=== PATIENT | male | born 1950 | race Two or more races ===

== ENCOUNTER 2025-01-02 11:15 | Emergency (ER) | payer OTHER ==
[~2025-01-02] VITALS: Ht 172.7 cm; Wt 78.3 kg
[2025-01-02 11:16] VITALS: BP 128/72; PULSE 68; RESP 16; TEMP 98; O2SAT 96
--- NOTE | 2025-01-02 11:43 | ED.PDOC ---
General HPI Comments HPI: 74 y/o M, presents to the ED for CC of Joy catheter removal. Patient reports he was DC from [facility] x2days ago, and was instructed to follow up with the ED if unable to follow up with Urology for Joy Catheter removal. At this time Joy Catheter is draining clear yellow urine and no blood is visible. Patient c/o current 5/10 pain to his penile area. Patient denies dysuria, frequency, urgency, fever, or penile discharge. No other symptoms or modifying factors are present at this time. Patient states he is unable to see his PCP for another two months and he tried calling them multiple times. Patient is extremely poor historian Initial Vitals BP:128/72 HR:68 RR:16 O2 Sat:96% Temp:98.0 Past Medical history: BPH, hyperlipidemia, hypertension, diabetes Past Surgical history: Denies any Medications: Social History: Denies smoking, ETOH, and drug use. Allergies: NKDA HPI: Poor Historian. REVIEW OF SYSTEMS: CONSTITUTIONAL: Denies acute: fever, diaphoresis, chills, generalized weakness. HEAD: Denies acute: headache, photophobia Eyes: Denies acute: Double vision, vision loss, eye pain, eye discharge. EARS: Denies acute: tinnitus, hearing loss, ear discharge, ear pain, THROAT: Denies acute: sore throat, swelling, difficulty swallowing , pain with swallowing, change in voice. NECK: Denies acute: neck pain, neck swelling, stiff neck. HEART: Denies acute : chest pain, palpitations, LUNGS: Denies acute: SOB, wheezing, cough, hemoptysis ABDOMEN: Denies acute: abdominal pain, Nausea, Vomiting, diarrhea, melena , hematemesis, hematochezia SKIN: Denies acute: rash, redness, lesions, itchiness. EXTREMITIES: Denies acute: calf pain, numbness, tingling, weakness, denies pain in extremity. Denies acute: Low back pain. Neuro: Denies acute: focal neurological deficit, motor or sensory focal neurological d eficit, tremors, seizure like activity, confusion, dizziness, change in mental status, loss of bowel or bladder function, cauda equina like symptoms. : Denies acute: dysuria, hematuria, flank pain, increase in urinary frequency. PSYCH: Denies acute: hallucination, suicidal ideation, homicidal ideation. PHYSICAL EXAM: General: ----NO----acute distress, awake and alert. Head: normocephalic, atraumatic. No raccoon's eyes, no mccrary sign. Neck: supple, trachea is midline, no swelling. Throat: Normal phonation. Eyes:, no erythema, no purulent discharge, no proptosis, no icterus. Heart: regular rate, regular rhythm, no significant murmur appreciated. Lungs: no apparent respiratory distress, Able to speak in full sentences. No wheezing, no rhonchi, no crackles. No stridors Clear to auscultation bilaterally. Abdomen: non tender to palpation, non distended, soft, no guarding, no rebound, + bowel sounds. Neuro: Awake, Alert, oriented to name, self, situation, follows commands GCS=15. Speech is normal. Skin: no petechia, no purpura, no cyanosis, non-pale, not jaundice. Lower extremities: --no - Pitting edema no deformity, no focal swelling, no calf TTP. Makes eye contact. moves all four extremities. Face: no apparent facial droop. Ambulating in the ED independently. ED COURSE: DISCLAIMER: This medical document was created using an electronic medical record system with voice recognition software and computerized dictation system. Although this document has been carefully reviewed, there might still be some phonetic and typographical errors. Occasional wrong-word or "sound-alike" substitutions may have occurred due to the inherent limitations of voice recognition software. These areas are purely typographical due to imperfections of the software programs and do not reflect any compromise in the patient's medical care. Please read the chart carefully and recognize, using context, where these substitutions have occurred. Chief Complaint: Urinary Time Seen by MD: 11:30 Reviewed notes: Nurses Notes, Medications, Allergies Allergies: Coded Allergies: NO KNOWN ALLERGIES (Unverified , 01/02/25) Information Source: Patient Mode of Arrival: Ambulatory Prehospital treatment: None Onset: Other (following catheter insertion) Symptoms: Other (penile pain) Penile discharge: None Modifying factors: None associated signs and symptoms: None Was a procedure done? Was a procedure done?: No Differential Diagnosis Kidney stone (Female): N/A Penile/Scrotal: UTI, Urolithiasis X-Ray, Labs, Meds, VS Vital Signs Date Time Temp Pulse Resp B/P (MAP) Pulse Ox O2 Delivery O2 Flow Rate FiO2 01/02/25 11:16 98.0 68 16 128/72 96 98.0 Time of 1ST Reevaluation: 12:00 Reevaluation 1ST: Unchanged Patient Education/Counseling: Diagnosis, Treatment Family Education/Counseling: No Family Present Comments MDM: patient presented with the above HPI.---indwelling Joy catheter---complaint evaluation was initiated. patient was found with the above mentioned diagnosis. the following medications were ordered: please refer to order lists of meds and tests obtained by myself Dr. Banks. Patient ED course and VS have been stabilized. Patient has been reassessed in the ED and remained in a stable condition. Pertinent incidental findings were discussed with the patient and/or family. Patient/family voices understanding and is agreeable with plan. Patient has been observed in the ED adequate length of time to insure improvement/stability. Escalation of care considered: Consideration of escalation to observation or admission I spoke with the Urology Clinic in our facility and they said to send the patient directly to their office and they will take over from there. Patient was DISCHARGED home in a stable condition. We took the patient directly from the ER and walked him into the urology clinic. All the reports of any imaging studies that were ordered by myself were reviewed by myself. SEPSIS Sepsis Screen Date sepsis recognized/suspect: Jan 02, 2025 Time Sepsis recognized/suspect: 1121 Recent Procedure: No On Antibiotic Therapy: No Respiratory Rate >20: No Heart Rate >90: No Temp<36 C (96.8 F) or >38.3 C: No SBP <90 or MAP <65 mmHG: No New Acute Mental Status Change: No Is the patient on CPAP, BIPAP,: No Vital Signs Date Time Temp Pulse Resp B/P (MAP) Pulse Ox O2 Delivery O2 Flow Rate FiO2 01/02/25 11:16 98.0 68 16 128/72 96 98.0 Departure 1 Departure Time of Disposition: 11:50 Impression: Primary Impression: Indwelling Joy catheter present Disposition: HOME / SELF CARE / HOMELESS Condition: Stable Additional Instructions: Urology clinic: [phone] [address] directly to [id number] In this facility to establish an appointment with the urology clinic. I already called them for you. Additional instructions: Please read all instructions provided in this packet carefully. You MUST follow-up with your primary care/family doctor in 1 to 2 days. If you are unable to see your primary care/family doctor, please return to our emergency room for re-assessment and re-evaluation in 1 to 2 days. Return to the emergency room here in our facility or to the nearest ER [facility] if your symptoms change or worsen. CONSULTATIONS: you MUST Follow-up for consultation as soon as possible with: -urology in 1-2 days. Please call for appointment. You MUST call the consultants office yourself to make an appointment. You may need to arrange that through your insurance and/or your primary/family doctor. If you are unable to see the customer sales consultant in 1 to 2 days, you must return to our emergency room (or any other ER of your choice) for re-assessment and re- evaluation. Adequate fluid hydration. Although you have been discharged from the Emergency Department, this does not mean that you have a "clean bill of health". No definitive diagnosis for your symptoms has been made today. It is possible that you are in the process of developing a serious illness. This is why you must return to the ED without fail if any new or worsening symptoms develop. Discharged With: Self Critical Care Note Critical Care Time?: No I personally scribed for SNEHAL BANKS DO ([email or web address]) on 01/02/25 at 11:43. Electronically submitted by Gloria Esteban ([email or web address]). SNEHAL BANKS DO Jan 02, 2025 11:43
== END 2025-01-02 12:00 | disposition home or self-care (01) ==
LOC: ER 11:15
DX: Z46.82 Encounter for fitting and adjustment of non-vascular catheter (principal); E78.5 Hyperlipidemia, unspecified; E11.9 Type 2 diabetes mellitus without complications; I10 Essential (primary) hypertension; N40.0 Benign prostatic hyperplasia without lower urinary tract symptoms

== ENCOUNTER 2025-01-09 11:26 | Inpatient (IN) | payer OTHER ==
[~2025-01-09] VITALS: Ht 203.2 cm; Wt 83.6 kg
--- NOTE | 2025-01-09 12:05 | ED.PDOC ---
General HPI Comments 74 year old male with PMHx BPH, hyperlipidemia, hypertension, diabetes presents to the ED with a chief complaint of penile pain onset 4 days. Patient states he began experiencing penile pain 4 days ago, noticed bleeding around the catheter, about 2 days ago noticed blood draining into catheter. Currently rates penile pain 10/08. He was seen in this ED on 01/02/25, catheter was not removed, was not experiencing bleeding at the time. Catheter was placed on 12/15/24 due to urinary blockage. Denies fever, chills, nausea, vomiting, diarrhea, headache, dizziness. No other symptoms or modifying factors present at this time. Chief Complaint: Urinary Time Seen by MD: 12:00 Reviewed notes: Medications, Allergies Allergies: Coded Allergies: NO KNOWN ALLERGIES (Unverified , 01/02/25) Information Source: Patient Mode of Arrival: Ambulatory Severity: Moderate Past Medical History PAST MEDICAL HISTORY: DM, High Lipids, HTN Surgical History: Denies all surgeries Family History Family History: Reviewed,noncontributory to illness, No family hx of Cancer, No family hx of DM, No family hx of Heart sirisha, No family hx of HTN, No family hx ofKidney sirisha, No family hx of Liver sirisha, No family hx of Lung sirisha, No family hx of Stroke Social History Smoker: Non-Smoker Alcohol: Denies ETOH Use Drugs: Denies Drug Use Lives In: Home Constitutional: denies: chills, diaphoresis, fatigue, fever, malaise, sweats, weakness, others EENTM: denies: blurred vision, double vision, ear bleeding, ear discharge, ear drainage, ear pain, ear ringing, eye pain, eye redness, hearing loss, mouth pain, mouth swelling, nasal discharge, nose bleeding, nose congestion, nose pain, photophobia, tearing, throat pain, throat swelling, voice changes, others Respiratory: denies: cough, hemoptysis, orthopnea, SOB at rest, shortness of breath, SOB with excertion, stridor, wheezing, others Cardiovascular: denies: chest pain, dizzy spells, diaphoresis, Dyspnea on e xertion, edema, irregular heart beat, left arm pain, lightheadedness, palpitations, PND, syncope, others Gastrointestinal: denies: abdomen distended, abdominal pain, blood streaked bowels, constipated, diarrhea, dysphagia, difficulty swallowing, hematemesis, melena, nausea, poor appetite, poor fluid intake, rectal bleeding, rectal pain, vomiting, others Genitourinary: reports: hematuria, testicle pain; denies: burning, dysuria, flank pain, frequency, incontinence, penile discharge, penile sore, pain, testicle swelling, urgency, others Neurological: denies: dizziness, fainting, headache, left sided numbness, left sided weakness, numbness, paresthesia, pre-existing deficit, right sided numbness, right sided weakness, seizure, speech problems, tingling, tremors, weakness, others Musculoskeletal: denies: back pain, gout, joint pain, joint swelling, muscle pain, muscle stiffness, neck pain, others Integumetry: denies: bruises, change in color, change in hair/nails, dryness, laceration, lesions, lumps, rash, wounds, others Allergic/Immunocompromised: denies: Difficulty Healing, Frequent Infections, Hives, Itching, others Hematologic/Lymphatic: denies: anemia, blood clots, easy bleeding, easy bruisin g, swollen glands, others Endocrine: denies: excessive hunger, excessive sweating, excessive thirst, excessive urination, flushing, intolerance to cold, intolerance to heat, unexplained weight gain, unexplained weight loss, others Psychiatric: denies: anxiety, bipolar disorder, depression, hopeless, panic disorder, schizophrenia, sleepless, suicidal, others All Other Systems: Reviewed and Negative Physical Exam General Appearance: Normal HEENT: Normal ENT Inspection, Pharynx Normal, TMs Normal Neck: Full Range of Motion, Non-Tender, Normal, Normal Inspection Respiratory: Chest Non-Tender, Lungs Clear, No Accessory Muscle Use, No Respiratory Distress, Normal Breath Sounds Cardiovascular: No Edema, No JVD, No Murmur, No Gallop, Normal Peripheral Pulses, Regular Rate/Rhythm Breast Exam: Deferred Gastrointestinal: No Organomegaly, Non Tender, No Pulsatile Mass, Normal Bowel Sounds, Soft Genitalia: Deferred Pelvic: Deferred Rectal: Deferred Extremities: No calf tenderness, Normal capillary refill, Normal inspection, Normal range of motion, Non-tender, No pedal edema Musculoskeletal : Apperance: Normal Neurologic: Alert, ski instructor II-XII nml as Tested, No Motor Deficits, Normal Affect, Normal Mood, No Sensory Deficits Cerebellar Function: Normal Reflexes: Normal Skin: Dry, Normal Color, Warm Lymphatic: No Adenopathy Was a procedure done? Was a procedure done?: No Differential Diagnosis Kidney stone (Female): N/A Kidney stone (Male): N/A Penile/Scrotal: N/A Urinary Problem (Male): Bladder Outlet, Bladder Obstruction, Urethritis, Urinary Retention Urinary Problem (Female): N/A X-Ray, Labs, Meds, VS Vital Signs Date Time Temp Pulse Resp B/P (MAP) Pulse Ox O2 Delivery O2 Flow Rate FiO2 01/09/25 11:34 98.9 69 16 124/63 95 98.9 Lab Test 01/09/25 13:58 01/09/25 12:38 01/09/25 12:15 Range/Units Lactic Acid Level 1.3 0.4-2.0 mmol/L White Blood Count 5.7 4.4-10.8 10^3/uL Red Blood Count 4.35 L 4.5-5.90 10^6/uL Hemoglobin 13.4 L 13.5-17.5 g/dL Hematocrit 40.2 L 41.0-53.0 % Mean Corpuscular Volume 92.5 80.0-100.0 fL Mean Corpuscular Hemoglobin 30.8 28.0-32.0 pg Mean Corpuscular Hemoglobin Concent 33.3 32.0-36.0 g/dL Red Cell Distribution Width 12.9 11.8-14.3 % Platelet Count 212 140-450 10^3/uL Mean Platelet Volume 7.9 6.9-10.8 fL Neutrophils (%) (Auto) 59.9 37.0-80.0 % Lymphocytes (%) (Auto) 30.2 10.0-50.0 % Monocytes (%) (Auto) 6.1 0.0-12.0 % Eosinophils (%) (Auto) 3.0 0.0-7.0 % Basophils (%) (Auto) 0.8 0.0-2.0 % Neutrophils # (Auto) 3.4 1.6-8.6 10 ^3/uL Lymphocytes # (Auto) 1.7 0.4-5.4 10 ^3/uL Monocytes # (Auto) 0.3 0-1.3 10 ^3/uL Eosinophils # (Auto) 0.2 0-0.8 10 ^3/uL Basophils # (Auto) 0 0-0.2 10 ^3/uL Nucleated Red Blood Cells 0.1 % Sodium Level 145 136-145 mmol/L Potassium Level 4.1 3.5-5.1 mmol/L Chloride Level 106 98-107 mmol/L Carbon Dioxide Level 28 20-31 mmol/L Anion Gap 11 5-15 Blood Urea Nitrogen 10 9-23 mg/dL Creatinine 0.97 0.700-1.30 mg/dL Glomerular Filtration Rate Calc 82 >90 mL/min BUN/Creatinine Ratio 10.3 10.0-20.0 Serum Glucose 151 H 74-106 mg/dL Calcium Level 9.4 8.7-10.4 mg/dL Urine Color Dark-brown Yellow Urine Clarity Ex.turbid Clear Urine pH 5.5 5.0-9.0 Urine Specific [place] 1.027 1.001-1.035 Urine Protein 1+ H Negative Urine Ketones Negative Negative Urine Blood 3+ H Negative /uL Urine Nitrite Negative Negative Urine Bilirubin Negative Negative Urine Urobilinogen Normal Negative mg/dL Urine Leukocyte Esterase 1+ Negative /uL Urine RBC 2976 0 - 3 /hpf Urine Microscopic WBC 377 H 0-3 /HPF Urine Squamous Epithelial Cells None seen <5 /hpf Urine Bacteria None seen None Seen /hpf Urine Mucus Few None Seen Urine Yeast (Budding) Many None Seen /hpf Urine Glucose Normal Normal mg/dL Time of 1ST Reevaluation: 12:30 Reevaluation 1ST: Unchanged Patient Education/Counseling: Diagnosis, Treatment, Prognosis Family Education/Counseling: No Family Present SEPSIS Sepsis Screen Date sepsis recognized/suspect: Jan 09, 2025 Time Sepsis recognized/suspect: 1139 Recent Procedure: No On Antibiotic Therapy: No Respiratory Rate >20: No Heart Rate >90: No Temp<36 C (96.8 F) or >38.3 C: No SBP <90 or MAP <65 mmHG: No New Acute Mental Status Change: No Is the patient on CPAP, BIPAP,: No Physician Orders Blood Culture (01/09/25 13:30) Vital Signs Date Time Temp Pulse Resp B/P (MAP) Pulse Ox O2 Delivery O2 Flow Rate FiO2 01/09/25 11:34 98.9 69 16 124/63 95 98.9 Laboratory Tests Test 01/09/25 12:38 01/09/25 13:58 White Blood Count 5.7 10^3/uL (4.4-10.8) Lactic Acid Level 1.3 mmol/L (0.4-2.0) Departure 1 Departure Time of Disposition: 15:16 (Patient with a Joy catheter has been in for over a month. Patient with a worsening hematuria and concern for catheter associated urinary tract infection. We will admit patient for further workup and expert consultation) Impression: Primary Impression: Indwelling Joy catheter present Additional Impressions: Catheter-associated urinary tract infection Hematuria Penile pain Disposition: ADMITTED INPATIENT Admit to: Med Surg Condition: Serious Critical Care Note Critical Care Time?: No Stability Stability form required: No Heart Score Heart Score: Heart Score Response (Comments) Value History N/A 0 EKG N/A 0 Age N/A 0 Risk Factors N/A 0 Troponin N/A 0 Total 0 I personally scribed for BURAK BAZZI MD ([email or web address]) on 01/09/25 at 12:05. Electronically submitted by Ashley Vallejo ([email or web address]). BURAK BAZZI MD Jan 09, 2025 12:05
[2025-01-09 12:56] LABS: Hematocrit 40.2 % (41.0-53.0); Hemoglobin 13.4 g/dL (13.5-17.5); Mean Corpuscular Hemoglobin 30.8 pg (28.0-32.0); Mean Corpuscular Volume 92.5 fL (80.0-100.0); Nucleated Red Blood Cells % 0.1 %
[2025-01-09 13:01] LABS: Urine Budding Yeast MANY /hpf (None Seen); Urine Protein, UAD 1+ (Negative)
[2025-01-09 13:10] LABS: Chloride 106 mmol/L (98-107); Potassium 4.1 mmol/L (3.5-5.1); Sodium 145 mmol/L (136-145)
[2025-01-09 13:12] LABS: Anion Gap 11 (5-15); Calcium 9.4 mg/dL (8.7-10.4); Carbon Dioxide 28 mmol/L (20-31)
[2025-01-09 13:17] LABS: BUN/Creatinine Ratio 10.3 (10.0-20.0); Blood Urea Nitrogen 10 mg/dL (9-23); Glucose 151 mg/dL (74-106)
[2025-01-09] MEDS: SODIUM CHLORIDE 0.9% 1,000 ML IV ONE (14:33)
[2025-01-09] MEDS ORDERED: NITROGLYCERIN 0.4 MG SL TAB SL PRN (17:00)
[2025-01-09] MEDS: ACCU-CHEK COMFORT CURVE STRIP VI SCH (17:00)
[2025-01-09] MEDS ORDERED: ACETAMINOPHEN 325 MG TAB PO PRN (17:00)
[2025-01-09] MEDS ORDERED: ONDANSETRON HCL 4 MG/2 ML VIAL IV PRN (17:00)
[2025-01-09] MEDS ORDERED: DEXTROSE (50%) 50ML SYRG IV PRN (17:00)
[2025-01-09] MEDS ORDERED: TRIAMCINOLONE ACET 0.1% TOPICAL CREAM 15GM TOP PRN (17:00)
[2025-01-09] MEDS ORDERED: MORPHINE SULFATE INJ 2 MG/ml SYRG IV PRN ×2 (17:00)
[2025-01-09] MEDS ORDERED: DOCUSATE SOD 100 MG CAP PO PRN (17:00)
[2025-01-09] MEDS: InsuLIN REG 1unit/0.01ml Soln (100units/ml) SC SCH (17:00)
[2025-01-09] MEDS: SODIUM CHLORIDE 0.9% 1,000 ML IV SCH (17:00)
--- NOTE | 2025-01-09 17:11 | DVHHPRES ---
History of Present Illness Resident Creating Document: SHAMEKA STONE RESIDENT History of Present Illness Mr. Park, a 74-year-old male with a history of BPH, hemorrhoids, hyperlipidemia, hypertension, dyslipidemia, dementia, and type II diabetes presented to the ED for Emerson catheter removal after being discharged from [facility] two days ago with instructions to return if unable to follow up with urology. The catheter is draining clear yellow urine without blood. He reports 5/10 penile pain but denies dysuria, frequency, urgency, fever, or discharge additionally with hematuria and testicular pain. He is unable to see his PCP for two months despite multiple attempts to contact them and is noted to be a poor historian. On arrival, vitals were stable (BP 128/72, HR 68, RR 16, SpO? 96%, Temp 98.0). He denies smoking, alcohol, or drug use and has no surgical history or known drug allergies. Past Medical Hx: BPH, hemorrhoids, hyperlipidemia, hypertension, dyslipidemia, dementia, and type II diabetes. Surgical History: Denies all surgeries, on emerson's catheter, for urinary retention needs urology follow up. Family History: Reviewed, noncontributory to illness Social History: Denies smoking, ETOH, and drug use. Comes from home. Review of Systems Constitutional: Yes: Chills, Malaise; No: Fever, Sweats, Weakness, Other Eyes: No: Pain, Vision change, Conjunctivae inflammation, Eyelid inflammation, Other, Redness ENT: No: Ear pain, Ear discharge, Nose pain, Nose discharge, Nose congestion, Mouth pain, Mouth swelling, Throat pain, Throat swelling, Other Respiratory: No: Cough, Dry, Shortness of breath, SOB with excertion, Wheezing, Hemoptysis, Pleuritic Pain, Sputum, Wheezing, Other Cardiovascular: No: Chest Pain, Palpitations, Orthopnea, Paroxysmal Noc. Dyspnea, Edema, Lt Headedness, Other Gastrointestinal: No: Nausea, Vomiting, Abdominal Pain, Diarrhea, Constipation, Melena, Hematochezia, Other Genitourinary: Dysuria, Frequency; No Incontinence; Hematuria, Retention; No Other Musculoskeletal: No: other, neck pain, shoulder pain, arm pain, back pain, hand pain, leg pain, foot pain Skin: No: Rash, Lesions, Jaundice, Bruising, Other Neurological: No: Weakness, Numbness, Incoordination, Change in speech, Confusion, Seizures, Other Allergies: Coded Allergies: NO KNOWN ALLERGIES (Unverified , 01/02/25) Medications Current Medications Medications Dose Ordered Sig/Lonnie Route Start Time Stop Time Status Last Admin Dose Admin Sodium Chloride 1,000 ml @ 120 mls/hr Q8H20M IV 01/09/25 17:00 UNV Ondansetron HCl 4 mg Q4HP PRN IV 01/09/25 17:00 UNV Docusate Sodium 100 mg BIDPRN PRN PO 01/09/25 17:00 UNV Acetaminophen 650 mg Q6HP PRN PO 01/09/25 17:00 UNV Morphine Sulfate 2 mg Q4HPRN PRN IV 01/09/25 17:00 UNV Nitroglycerin 0.4 mg Q5MINP PRN SL 01/09/25 17:00 UNV Morphine Sulfate 2 mg Q30M PRN IV 01/09/25 17:00 UNV Piperacillin Sod/ Tazobactam Sod 100 ml @ 100 mls/hr Q8HR IV 01/09/25 17:00 UNV Tamsulosin HCl 0.4 mg DAILY PO 01/10/25 17:00 UNV Exam Vital Signs Vital Signs Date Time Temp Pulse Resp B/P (MAP) Pulse Ox O2 Delivery O2 Flow Rate FiO2 01/09/25 15:39 67 16 136/79 (98) 97 01/09/25 11:34 98.9 98.9 General Appearance: Alert, Oriented X3, Cooperative, No acute distress, mild distress HEENT: Atraumatic, PERRLA, EOMI, Mucous membr. moist/pink Respiratory: Clear to auscultation, Normal air movement Cardiovascular: Regular rate, Normal S1, Normal S2, No murmurs, Gallops, Rubs Abdominal: Normal bowel sounds, Soft, No hepatospenomegaly, Other (on foleys catheter, suprapubic tenderness, unremarkable perinium. ) Extremities: No clubbing, No cyanosis, No edema, Normal pulses, No tenderness/swelling, Other (lower leg dialated veins, varicose) Skin: No rashes, No breakdown, No significant lesion Neuro: Normal gait, Normal speech, Strength at 5/5 X4 ext, Normal tone, Sensation intact, Other (alert and orineted to time and place. ) Psych/Mental Status: Mental status NL, Mood NL Labs/Xrays Labs Test 01/09/25 13:58 01/09/25 12:38 01/09/25 12:15 Range/Units Lactic Acid Level 1.3 0.4-2.0 mmol/L White Blood Count 5.7 4.4-10.8 10^3/uL Red Blood Count 4.35 L 4.5-5.90 10^6/uL Hemoglobin 13.4 L 13.5-17.5 g/dL Hematocrit 40.2 L 41.0-53.0 % Mean Corpuscular Volume 92.5 80.0-100.0 fL Mean Corpuscular Hemoglobin 30.8 28.0-32.0 pg Mean Corpuscular Hemoglobin Concent 33.3 32.0-36.0 g/dL Red Cell Distribution Width 12.9 11.8-14.3 % Platelet Count 212 140-450 10^3/uL Mean Platelet Volume 7.9 6.9-10.8 fL Neutrophils (%) (Auto) 59.9 37.0-80.0 % Lymphocytes (%) (Auto) 30.2 10.0-50.0 % Monocytes (%) (Auto) 6.1 0.0-12.0 % Eosinophils (%) (Auto) 3.0 0.0-7.0 % Basophils (%) (Auto) 0.8 0.0-2.0 % Neutrophils # (Auto) 3.4 1.6-8.6 10 ^3/uL Lymphocytes # (Auto) 1.7 0.4-5.4 10 ^3/uL Monocytes # (Auto) 0.3 0-1.3 10 ^3/uL Eosinophils # (Auto) 0.2 0-0.8 10 ^3/uL Basophils # (Auto) 0 0-0.2 10 ^3/uL Nucleated Red Blood Cells 0.1 % Sodium Level 145 136-145 mmol/L Potassium Level 4.1 3.5-5.1 mmol/L Chloride Level 106 98-107 mmol/L Carbon Dioxide Level 28 20-31 mmol/L Anion Gap 11 5-15 Blood Urea Nitrogen 10 9-23 mg/dL Creatinine 0.97 0.700-1.30 mg/dL Glomerular Filtration Rate Calc 82 >90 mL/min BUN/Creatinine Ratio 10.3 10.0-20.0 Serum Glucose 151 H 74-106 mg/dL Calcium Level 9.4 8.7-10.4 mg/dL Urine Color Dark-brown Yellow Urine Clarity Ex.turbid Clear Urine pH 5.5 5.0-9.0 Urine Specific [place] 1.027 1.001-1.035 Urine Protein 1+ H Negative Urine Ketones Negative Negative Urine Blood 3+ H Negative /uL Urine Nitrite Negative Negative Urine Bilirubin Negative Negative Urine Urobilinogen Normal Negative mg/dL Urine Leukocyte Esterase 1+ Negative /uL Urine RBC 2976 0 - 3 /hpf Urine Microscopic WBC 377 H 0-3 /HPF Urine Squamous Epithelial Cells None seen <5 /hpf Urine Bacteria None seen None Seen /hpf Urine Mucus Few None Seen Urine Yeast (Budding) Many None Seen /hpf Urine Glucose Normal Normal mg/dL SEPSIS Sepsis Screen Date sepsis recognized/suspect: Jan 09, 2025 Time Sepsis recognized/suspect: 1139 Recent Procedure: No On Antibiotic Therapy: No Respiratory Rate >20: No Heart Rate >90: No Temp<36 C (96.8 F) or >38.3 C: No SBP <90 or MAP <65 mmHG: No New Acute Mental Status Change: No Is the patient on CPAP, BIPAP,: No Physician Orders Blood Culture (01/09/25 13:30) * Urology Consult (01/09/25 15:15) Admit (01/09/25 16:48) Allergies (01/09/25 16:48) Code Status (01/09/25 16:48) Sodium Chloride 0.9% (01/09/25 17:00) Ondansetron Hcl (Zofran) (01/09/25 17:00) Docusate Sodium Capsule (Colace Capsule) (01/09/25 17:00) Complete Blood Count (01/10/25 04:00) Comprehensive Metabolic Panel (01/10/25 04:00) Cardiac Diet-2gna,Lofat,Lochol (01/09/25 Dinner) Condition: Serious (01/09/25 16:48) Acetaminophen Tablet (Tylenol Tablet) (01/09/25 17:00) Bedrest With Bathroom Privileg (01/09/25 16:48) Morphine Sulfate Injection (01/09/25 17:00) Sequential Compression Device (01/09/25 ) Nitroglycerin Sublingual (Ntrostat Subli (01/09/25 17:00) Morphine Sulfate Injection (01/09/25 17:00) Oxygen By Nasal Cannula (01/09/25 16:48) Stat Ekg For Chest Pain (01/09/25 16:48) Notify Of Changes From Base (01/09/25 16:48) Attorney For 24 Hours (01/09/25 16:48) Emergency Dysrhythmia Protocol (01/09/25 16:48) Rhythm Strips Once Every Shift (01/09/25 16:48) Piperacillin-Tazob 3.375gm (Zosyn 3.375g (01/09/25 17:00) Urine Bacterial Culture (01/09/25 16:48) Kidney (01/09/25 16:48) Hepatic Panel (01/09/25 16:48) Tamsulosin Hydrochloride (Flomax) (01/10/25 17:00) Testicular Ultrasound (01/09/25 ) Vital Signs Date Time Temp Pulse Resp B/P (MAP) Pulse Ox O2 Delivery O2 Flow Rate FiO2 01/09/25 15:39 67 16 136/79 (98) 97 01/09/25 11:34 98.9 69 16 124/63 95 98.9 Laboratory Tests Test 01/09/25 12:38 01/09/25 13:58 White Blood Count 5.7 10^3/uL (4.4-10.8) Lactic Acid Level 1.3 mmol/L (0.4-2.0) Medications Medications Dose Ordered Sig/Lonnie Route Start Time Stop Time Status Last Admin Dose Admin Ceftriaxone Sodium 50 ml @ 100 mls/hr ONCE ONCE IV 01/09/25 13:30 01/09/25 13:59 DC 01/09/25 14:33 100 MLS/HR Sodium Chloride 1,000 ml @ 1,000 mls/hr Q1H ONCE IV 01/09/25 13:30 01/09/25 14:29 DC 01/09/25 14:33 1,000 MLS/HR Assessment/Plan Assessment/Plan #Acute complicated UTI: Likely gram -ve, s/p iv ceftriaxone, Zosyn with cultures. #Penile pain with scrotal pain: rule out ischemia, check lactate, scrotal US and STD to rule out #Post renal obstruction on foleys: check bnp: US renal pending, in high suspicion check CT with contrast, Urology consulted, input pending. #Internal Hemorrhoids: on cream, no active bleeding, use the cream, avoid constipation, high fiber diet. #Prior UTI: was treated with double strength Bactrim, no culture in chart, blood and urine culture to send, IV Zosyn to continue, s/p iv ceftriaxone. #Essential HTN: Lopressor 25 mg daily, monitor HTN, Cardiac diet with salt restriction and target BP 130/80. previously on valsartan 80 mg. #Dsylipidemia: Atorvastatin 20 mg daily, will continue 40mg daily, CMP to check. #Chronic constipation: as needed docusate. 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 #B/l venous varicose, age related vascular insufficiency: stockings and triamcinolone cream to continue. #Likely Dementia, no behavioral issue: donepezil 5mg daily. #Type II DM: HbA1C to check, home metformin 1000mg bid to hold ssi, target BG 140-180. Target HbA1C 7-8. PUD prophylaxis: protonix 40mg iv daily DVT prophylaxis: SCDs only. Barriers to discharge: Medical diagnosis and management in progress. Patient lives with family. Independent for ADL. PT and SW consult as needed for safe discharge. PCP: Dr. Albarran, Dr. Nguyen Specialist Relevant To Admission: Urology, for obstruction. Case discussed with Dr. Woods. Code Status: Full Code. Discussion needed total 29 minutes bedside. Plan discussed with: Patient My Orders Orders - SHAMEKA STONE RESIDENT Procedure Category Date Status Time Admit ADMIT 01/09/25 Transmitted 16:48 Allergies SALUD 01/09/25 In Process 16:48 Code Status CODE 01/09/25 Transmitted 16:48 Sodium Chloride 0.9% PHA 01/09/25 Logged 17:00 Ondansetron Hcl PHA 01/09/25 Logged (Zofran) 17:00 Docusate Sodium PHA 01/09/25 Logged Capsule (Colace 17:00 Complete Blood Count LAB 01/10/25 Verified 04:00 Comprehensive LAB 01/10/25 Verified Metabolic Panel 04:00 Cardiac DIET 01/09/25 Transmitted Diet-2gna,Lofat,Lochol Dinner Condition: Serious SALUD 01/09/25 In Process 16:48 Acetaminophen Tablet [facility] 01/09/25 Logged (Tylenol Tablet) 17:00 Bedrest With Bathroom [facility] 01/09/25 In Process Privileg 16:48 Morphine Sulfate [facility] 01/09/25 Logged Injection 17:00 Sequential [facility] 01/09/25 In Process Compression Device Nitroglycerin [facility] 01/09/25 Logged Sublingual (Ntrostat 17:00 Morphine Sulfate [facility] 01/09/25 Logged Injection 17:00 Oxygen By Nasal RT 01/09/25 Transmitted Cannula 16:48 Stat Ekg For Chest [facility] 01/09/25 In Process Pain 16:48 Notify Md Of Changes [facility] 01/09/25 In Process From Base 16:48 Attorney For [facility] 01/09/25 In Process 24 Hours 16:48 Emergency Dysrhythmia [facility] 01/09/25 In Process Protocol 16:48 Rhythm Strips Once [facility] 01/09/25 In Process Every Shift 16:48 Piperacillin-Tazob [facility] 01/09/25 Logged 3.375gm (Zosyn 3.375g 17:00 Urine Bacterial MIHAELA 01/09/25 Logged Culture 16:48 Kidney US 01/09/25 Logged 16:48 Hepatic Panel LAB 01/09/25 In Process 16:48 Tamsulosin [facility] 01/10/25 Logged Hydrochloride (Flomax) 17:00 Testicular Ultrasound US 01/09/25 Logged Date of Service: Jan 09, 2025 Billing Provider: KERVIN WOODS MD Common Visit Codes: 27248-[id number] INP/OBS CARE (HIGH) Secondary Visit Codes: [id number] CARE PLAN 30 MINUTES SHAMEKA STONE RESIDENT Jan 09, 2025 17:11
[2025-01-09 17:25] LABS: Alanine Aminotransferase 31.0 U/L (7-40); Albumin 4.7 g/dL (3.2-4.8); Alkaline Phosphatase 58.0 U/L (46-116); Bilirubin, Direct 0.3 mg/dL (<0.3); Bilirubin, Total 0.7 mg/dL (0.2-1.0); Total Protein 8.0 g/dL (5.7-8.2)
[2025-01-09] MEDS: PIPERACILLIN-TAZOB 3.375GM 100 ML IV ONE (17:41)
[2025-01-09] MEDS: TAMSULOSIN HYDROCHLORIDE 0.4 MG CAP PO SCH (18:00)
--- NOTE | 2025-01-09 18:07 | DVH ---
CLINICAL HISTORY: rule out stone or obstruction TECHNIQUE: Complete ultrasound exam of the kidneys and bladder was performed. COMPARISON: US KIDNEY on DOS: 05/18/24, US ABDOMEN COMPLETE SONOGRAM on DOS: 02/15/24, KIDNEY on DOS: 08/18/21 FINDINGS: The right kidney has normal echogenicity and measures 10.9 cm. There is a 6.8 cm cyst with no evidence for stone. There is no hydronephrosis. The left kidney has normal echogenicity and measures 11.1 cm. There is a 1.8 cm cyst with no evidence for stone. There is no hydronephrosis. The bladder is decompressed by a Joy catheter and therefore not well evaluated. IMPRESSION: NO SIGNIFICANT SONOGRAPHIC ABNORMALITY OF THE KIDNEYS.
--- NOTE | 2025-01-09 18:18 | DVH ---
ULTRASOUND OF SCROTUM AND CONTENTS. INDICATION: R/O TORSION / COLLECTION COMPARISON: None TECHNIQUE: Multiple real-time grayscale sonographic and color and duplex Doppler images of the scrotum and its contents were obtained. FINDINGS: RIGHT TESTICLE: Measures 3.62 X 2.53 X 3.50 cm. VOLUME OF THE RIGHT TESTICLE IS 16.76 ML. Right hydrocele is visible. LEFT TESTICLE: Measures 4.2 X 2.63 X 2.90 cm. LEFT TESTICULAR VOLUME IS 16.81 ML. Left scrotal hydrocele Small anechoic mass on the left measures 0.22 x 0.33 x 0.29 consistent with a cyst. Both testicles demonstrate homogeneous echotexture without evidence of focal lesions. The right epididymal head measures 1.3 cm. The left epididymal head measures 1.75 cm. Sec small anechoic mass in the epididymis measures 1.04 x 0.69 x 0.35 cm and is consistent with an epididymal cyst. Subsequent color and duplex Doppler interrogation of the testes demonstrated symmetric normal vascular flow to both testicles. No focal areas of hyperemia were seen. IMPRESSION: 1. No evidence of torsion, epididymitis, and/or orchitis. 2. 2 epididymal cysts on the left
[2025-01-09] MEDS: ATORVASTATIN 20 MG TAB PO SCH (23:07)
[2025-01-10] VITALS (8 sets, daily range): BP systolic 124–134; BP diastolic 66–88; PULSE 56–68; RESP 16–18; TEMP 97–98.4; O2SAT 97–99
[2025-01-10] MEDS: PIPERACILLIN-TAZOB 3.375GM 100 ML IV SCH (00:55)
[2025-01-10] MEDS ORDERED: PNEUMOCOCCAL VACC POLYS 25 MCG/0.5 ML VIAL IM ONE (05:30)
[2025-01-10 06:56] LABS: Hematocrit 36.3 % (41.0-53.0); Hemoglobin 12.1 g/dL (13.5-17.5); Mean Corpuscular Hemoglobin 31.1 pg (28.0-32.0); Mean Corpuscular Volume 93.1 fL (80.0-100.0); Nucleated Red Blood Cells % 0.3 %
[2025-01-10 07:08] LABS: Alanine Aminotransferase 23 U/L (7-40); Alkaline Phosphatase 47 U/L (46-116); Anion Gap 10 (5-15); BUN/Creatinine Ratio 11.8 (10.0-20.0); Blood Urea Nitrogen 11 mg/dL (9-23); Carbon Dioxide 27 mmol/L (20-31); Chloride 105 mmol/L (98-107); Potassium 4.3 mmol/L (3.5-5.1); Sodium 142 mmol/L (136-145); Total Protein 6.7 g/dL (5.7-8.2)
[2025-01-10 07:09] LABS: Albumin 3.9 g/dL (3.2-4.8); Bilirubin, Total 0.7 mg/dL (0.2-1.0)
[2025-01-10 07:10] LABS: Calcium 8.7 mg/dL (8.7-10.4); Glucose 113 mg/dL (74-106)
[2025-01-10 08:45] LABS: Iron 61.0 ug/dL (65-175)
[2025-01-10 08:48] LABS: Total Iron Binding Capacity 262.0 ug/dL (250-425)
[2025-01-10 08:55] LABS: Triglycerides 97 mg/dL (< 150)
[2025-01-10 08:57] LABS: Cholesterol 108 mg/dL (< 200)
[2025-01-10 09:01] LABS: HDL Cholesterol 28 mg/dL (40-59)
[2025-01-10] MEDS: DONEPEZIL HYDROCHLORIDE 5 MG TAB PO SCH (10:10)
[2025-01-10] MEDS: PANTOPRAZOLE 40 MG/10 ML VIAL INJ IV SCH (10:10)
--- NOTE | 2025-01-10 14:27 | DVHINCON2 ---
Date of service: Jan 10, 2025 Referring Physician Hospitalist Reason for Consultation Urinary retention History of Present Illness Patient seen at [facility] [place] clinic on 07/13/24 for elevated PSA 5.6 (05/05/24) and 12/29/24 for urinary retention/elevated PSA. He had a CT Scan done on 10/23/24 with findings of severe prostatemegaly. He refused Joy catheter on his last visit. 74-year-old male with a history of BPH, hemorrhoids, hyperlipidemia, hypertension, dyslipidemia, dementia, and type II diabetes presented to the ED for Joy catheter removal after being discharged from [facility] two days ago. The catheter is draining clear yellow urine without blood. He reports 5/10 penile pain but denies dysuria, frequency, urgency, fever, or discharge additionally with hematuria and testicular pain. He is unable to see his PCP for two months despite multiple attempts to contact them and is noted to be a poor historian. On arrival, vitals were stable (BP 128/72, HR 68, RR 16, SpO? 96%, Temp 98.0). He denies smoking, alcohol, or drug use and has no surgical history or known drug allergies. Past Medical History BPH, hemorrhoids, hyperlipidemia, hypertension, dyslipidemia, dementia, and type II diabetes. Family History: Patient reports no known family medical history. Allergies: Coded Allergies: NO KNOWN ALLERGIES (Unverified , 01/02/25) Current Medications Current Medications Medications (Trade) Dose Ordered Sig/Lonnie Route PRN Reason Start Time Stop Time Status Last Admin Sodium Chloride 1,000 ml @ 120 mls/hr Q8H20M IV 01/09/25 17:00 01/10/25 10:12 Ondansetron HCl (Zofran) 4 mg Q4HP PRN IV NAUSEA / VOMITING 01/09/25 17:00 Docusate Sodium (Colace Capsule) 100 mg BIDPRN PRN PO FOR CONSTIPATION 01/09/25 17:00 Acetaminophen (Tylenol Tablet) 650 mg Q6HP PRN PO PAIN SCALE 1-3 OR TEMP>100.4 01/09/25 17:00 Morphine Sulfate 2 mg Q4HPRN PRN IV SEVERE PAIN (7-10 PAIN SCALE) 01/09/25 17:00 Nitroglycerin (Ntrostat Sublingual) 0.4 mg Q5MINP PRN SL FOR CHEST PAIN 01/09/25 17:00 Morphine Sulfate 2 mg Q30M PRN IV FOR CHEST PAIN 01/09/25 17:00 Piperacillin Sod/ Tazobactam Sod 100 ml @ 25 mls/hr Q8H IV 01/10/25 01:00 01/10/25 10:11 Tamsulosin HCl (Flomax) 0.4 mg QPM PO 01/09/25 18:00 01/09/25 18:00 Atorvastatin Calcium (Lipitor) 40 mg HS PO 01/09/25 22:00 01/09/25 23:07 Pantoprazole Sodium (Protonix) 40 mg DAILY IV 01/10/25 10:00 01/10/25 10:10 Triamcinolone Acetonide (Kenalog 0.1 Cr) 1 applic BIDP PRN TOP FOR ITCHING 01/09/25 17:00 Donepezil HCl (Aricept Tablet) 5 mg DAILY PO 01/10/25 10:00 01/10/25 10:10 Diagnostic Test (Pha) (Accu-Chek Comfort Curve T) 1 strip ACHS 01/09/25 17:00 01/10/25 13:55 Insulin Human Regular (InsuLIN R) ACHS SC 01/09/25 17:00 Dextrose 50 ml UD PRN IV Blood Sugar LESS THAN 60 01/09/25 17:00 Ergocalciferol (Vitamin D 50,000 Unit) 50,000 unit Q7D PO 01/10/25 09:15 Review of Systems Constitutional: Yes: Chills, Malaise; No: Fever, Sweats, Weakness, Other Eyes: No: Pain, Vision change, Conjunctivae inflammation, Eyelid inflammation, Other, Redness ENT: No: Ear pain, Ear discharge, Nose pain, Nose discharge, Nose congestion, Mouth pain, Mouth swelling, Throat pain, Throat swelling, Other Respiratory: No: Cough, Dry, Shortness of breath, SOB with excertion, Wheezing, Hemoptysis, Pleuritic Pain, Sputum, Wheezing, Other Cardiovascular: No: Chest Pain, Palpitations, Orthopnea, Paroxysmal Noc. Dyspnea, Edema, Lt Headedness, Other Gastrointestinal: No: Nausea, Vomiting, Abdominal Pain, Diarrhea, Constipation, Melena, Hematochezia, Other Genitourinary: Dysuria, Frequency; No Incontinence; Hematuria, Retention; No Other Musculoskeletal: No: other, neck pain, shoulder pain, arm pain, back pain, hand pain, leg pain, foot pain Skin: No: Rash, Lesions, Jaundice, Bruising, Other Neurological: No: Weakness, Numbness, Incoordination, Change in speech, Confusion, Seizures, Other Allergies: Coded Allergies: NO KNOWN ALLERGIES (Unverified , 01/02/25) Medications Current Medications Medications Dose Ordered Sig/Lnonie Route Start Time Stop Time Status Last Admin Dose Admin Sodium Chloride 1,000 ml @ 120 mls/hr Q8H20M IV 01/09/25 17:00 UNV Ondansetron HCl 4 mg Q4HP PRN IV 01/09/25 17:00 UNV Docusate Sodium 100 mg BIDPRN PRN PO 01/09/25 17:00 UNV Acetaminophen 650 mg Q6HP PRN PO 01/09/25 17:00 UNV Morphine Sulfate 2 mg Q4HPRN PRN IV 01/09/25 17:00 UNV Nitroglycerin 0.4 mg Q5MINP PRN SL 01/09/25 17:00 UNV Morphine Sulfate 2 mg Q30M PRN IV 01/09/25 17:00 UNV Piperacillin Sod/ Tazobactam Sod 100 ml @ 100 mls/hr Q8HR IV 01/09/25 17:00 UNV Tamsulosin HCl 0.4 mg DAILY PO 01/10/25 17:00 UNV Vital Signs Vital Signs Date Time Temp Pulse Resp B/P (MAP) Pulse Ox O2 Delivery O2 Flow Rate FiO2 01/10/25 12:46 97.8 62 16 131/88 (102) 99 97.8 01/10/25 08:00 Room Air* 0 21 Physical Exam Vital Signs Date Time Temp Pulse Resp B/P (MAP) Pulse Ox O2 Delivery O2 Flow Rate FiO2 01/09/25 15:39 67 16 136/79 (98) 97 01/09/25 11:34 98.9 98.9 General Appearance: Alert, Oriented X3, Cooperative, No acute distress, mild distress HEENT: Atraumatic, PERRLA, EOMI, Mucous membr. moist/pink Respiratory: Clear to auscultation, Normal air movement Cardiovascular: Regular rate, Normal S1, Normal S2, No murmurs, Gallops, Rubs Abdominal: Normal bowel sounds, Soft, No hepatospenomegaly, Other (on foleys catheter, suprapubic tenderness, unremarkable perinium. ) Extremities: No clubbing, No cyanosis, No edema, Normal pulses, No tenderness/swelling, Other (lower leg dialated veins, varicose) Skin: No rashes, No breakdown, No significant lesion Neuro: Normal gait, Normal speech, Strength at 5/5 X4 ext, Normal tone, Sensation intact, Other (alert and orineted to time and place. ) Psych/Mental Status: Mental status NL, Mood NL Labs/Diagnostic Data Labs Test 01/10/25 12:14 01/10/25 09:34 01/10/25 04:57 01/09/25 18:27 Range/Units POC Glucose 121 H 70-106 mg/dl White Blood Count 5.8 4.4-10.8 10^3/uL Red Blood Count 3.90 L 4.5-5.90 10^6/uL Hemoglobin 12.1 L 13.5-17.5 g/dL Hematocrit 36.3 L 41.0-53.0 % Mean Corpuscular Volume 93.1 80.0-100.0 fL Mean Corpuscular Hemoglobin 31.1 28.0-32.0 pg Mean Corpuscular Hemoglobin Concent 33.4 32.0-36.0 g/dL Red Cell Distribution Width 12.8 11.8-14.3 % Platelet Count 181 140-450 10^3/uL Mean Platelet Volume 8.5 6.9-10.8 fL Neutrophils (%) (Auto) 51.8 37.0-80.0 % Lymphocytes (%) (Auto) 37.0 10.0-50.0 % Monocytes (%) (Auto) 6.6 0.0-12.0 % Eosinophils (%) (Auto) 3.9 0.0-7.0 % Basophils (%) (Auto) 0.7 0.0-2.0 % Neutrophils # (Auto) 3.0 1.6-8.6 10 ^3/uL Lymphocytes # (Auto) 2.1 0.4-5.4 10 ^3/uL Monocytes # (Auto) 0.4 0-1.3 10 ^3/uL Eosinophils # (Auto) 0.2 0-0.8 10 ^3/uL Basophils # (Auto) 0 0-0.2 10 ^3/uL Nucleated Red Blood Cells 0.3 % Sodium Level 142 136-145 mmol/L Potassium Level 4.3 3.5-5.1 mmol/L Chloride Level 105 98-107 mmol/L Carbon Dioxide Level 27 20-31 mmol/L Anion Gap 10 5-15 Blood Urea Nitrogen 11 9-23 mg/dL Creatinine 0.93 0.700-1.30 mg/dL Glomerular Filtration Rate Calc 86 >90 mL/min BUN/Creatinine Ratio 11.8 10.0-20.0 Serum Glucose 113 H 74-106 mg/dL Calcium Level 8.7 8.7-10.4 mg/dL Iron Level 61 L 65-175 ug/dL Total Iron Binding Capacity 262 250-425 ug/dL Percent Iron Saturation 23.3 20-55 % Total Bilirubin 0.7 0.2-1.0 mg/dL Aspartate Amino Transferase (AST) 19 13-40 U/L Alanine Aminotransferase (ALT) 23 7-40 U/L Alkaline Phosphatase 47 46-116 U/L Total Protein 6.7 5.7-8.2 g/dL Albumin 3.9 3.2-4.8 g/dL Triglycerides Level 97 < 150 mg/dL Cholesterol Level 108 < 200 mg/dL LDL Cholesterol 67 < 100 mg/dL HDL Cholesterol 28 L 40-59 mg/dL Vitamin B12 Level 680 211-911 pg/mL Vitamin D 25-Hydroxy 29.4 L 30.0-100 ng/mL Lactic Acid Level 1.3 0.4-2.0 mmol/L Test 01/09/25 12:39 01/09/25 12:38 01/09/25 12:15 Range/Units Hemoglobin A1c 6.9 H <5.7 % A1C Direct Bilirubin 0.3 <0.3 mg/dL Urine Color Dark-brown Yellow Urine Clarity Ex.turbid Clear Urine pH 5.5 5.0-9.0 Urine Specific [place] 1.027 1.001-1.035 Urine Protein 1+ H Negative Urine Ketones Negative Negative Urine Blood 3+ H Negative /uL Urine Nitrite Negative Negative Urine Bilirubin Negative Negative Urine Urobilinogen Normal Negative mg/dL Urine Leukocyte Esterase 1+ Negative /uL Urine RBC 2976 0 - 3 /hpf Urine Microscopic WBC 377 H 0-3 /HPF Urine Squamous Epithelial Cells None seen <5 /hpf Urine Bacteria None seen None Seen /hpf Urine Mucus Few None Seen Urine Yeast (Budding) Many None Seen /hpf Urine Glucose Normal Normal mg/dL Microbiology Date/Time Source Procedure Growth Status 01/09/25 13:58 Blood Blood Culture - Preliminary NO GROWTH AFTER 24 HOURS OF INCUBATION. Resulted 01/09/25 12:15 Voided Urine Urine Culture - Preliminary Resulted PATIENT: NESSA MARIEE ACCT: [id number] UNIT: [id number] : 1950 [facility]GE / SEX: 74 / M ADM STATUS: ADM IN SERVICE ORDERING PHYSICIAN: SHAMEKA STONE PROCEDURE(s): KIDUS - KIDNEY REASON: rule out stone or obstruction ORDER NUMBER(s): [id number], ACCESSION NUMBER(s): [id number] CLINICAL HISTORY: rule out stone or obstruction TECHNIQUE: Complete ultrasound exam of the kidneys and bladder was performed. COMPARISON: US KIDNEY on DOS: 05/18/24, US ABDOMEN COMPLETE SONOGRAM on DOS: 02/15/24, KIDNEY on DOS: 08/18/21 FINDINGS: The right kidney has normal echogenicity and measures 10.9 cm. There is a 6.8 cm cyst with no evidence for stone. There is no hydronephrosis. The left kidney has normal echogenicity and measures 11.1 cm. There is a 1.8 cm cyst with no evidence for stone. There is no hydronephrosis. The bladder is decompressed by a Joy catheter and therefore not well evaluated. IMPRESSION: NO SIGNIFICANT SONOGRAPHIC ABNORMALITY OF THE KIDNEYS. ATED BY: GALINA CHAVEZ MD DICTATED DATE/TIME: 01/09/251804 SIGNED BY: GALINA CHAVEZ MD SIGNED DATE/TIME: 01/09/251804 CC: Assessment Elevated PSA 5.6 BPH Urinary retention Plan/Recommendation Joy to gravity Patient needs MRI prostate Cystoscopy/TRUS/PNBX TBA Plan discussed with: Patient, Other LELO JIM MD Jan 10, 2025 14:27
[2025-01-10] MEDS: ERGOCALCIFEROL 50,000 UNIT(1.25MG) CAP PO SCH (14:45)
--- NOTE | 2025-01-10 19:24 | DVHPNRES ---
Progress Note Date Seen: Jan 10, 2025 Resident Creating Document: MACK WONG RESIDENT Has the PT tested + for MRSA If YES, has PT been informed?: No Medical Necessity Reason Pt with a Central, PICC or Fol: No Subjective Review of Systems Bridger Roy is a 74-year-old male, with a past medical history of BPH, hyperlipidemia, hypertension, dyslipidemia, dementia, and DM2. The patient presented to the [facility] with history of 4 days of noticing brown-red urine coming from the Emerson catheter, associated chills, malaise, dysuria, and penile pain /, continues, burning like, no irradiates, with no aggravating or alleviating symptoms. The patient denies fever, chills, pelvic pain or other symptoms. On further questioning, the patient report that visit [facility] ED on 12/15/24 due to urinary retention, there a Emerson catheter was placed, with instructions to return if unable to follow up with urology. He was unable to see his PCP for two months despite multiple attempts to contact them. In the ED the vital signs were stable (BP 128/72, HR 68, RR 16, SpO? 96%, Temp 98.0). Past Medical Hx: BPH, hemorrhoids, hyperlipidemia, hypertension, dyslipidemia, dementia, and type II diabetes. Surgical History: Denies all surgeries, on Emerson's catheter, for urinary retention needs urology follow up. Family History: Reviewed, noncontributory to illness Social History: Denies smoking, ETOH, and drug use. Lives with family. Hospital course: On 01/10/25, the patient was evaluated and examined at bedside, vital signs, labs, chart were reviewed. The patient reports dysuria and pelvic pain. The patient continues IV antibiotic Zocyn. Urology is onboard, since the bleeding through the Emerson catheter has stopped, they recommend emerson with gravity, cystoscopy and fine needle prostate biopsy. The patient will continue tamsulosin and IV antibiotics. Urine cultures preliminary showed: young colonies, we will wait for the final report. We will following this patient's progress closely. ROS: Constitutional: Yes: Chills, Malaise; No: Fever, Sweats, Weakness, Other Eyes: No: Pain, Vision change, Conjunctivae inflammation, Eyelid inflammation, Other, Redness ENT: No: Ear pain, Ear discharge, Nose pain, Nose discharge, Nose congestion, Mouth pain, Mouth swelling, Throat pain, Throat swelling, Other Respiratory: No: Cough, Dry, Shortness of breath, SOB with excertion, Wheezing, Hemoptysis, Pleuritic Pain, Sputum, Wheezing, Other Cardiovascular: No: Chest Pain, Palpitations, Orthopnea, Paroxysmal Noc. Dyspnea, Edema, Lt Headedness, Other Gastrointestinal: No: Nausea, Vomiting, Abdominal Pain, Diarrhea, Constipation, Melena, Hematochezia, Other Genitourinary: Dysuria, No Incontinence; Hematuria, Retention; No Other Musculoskeletal: No: other, neck pain, shoulder pain, arm pain, back pain, hand pain, leg pain, foot pain Skin: No: Rash, Lesions, Jaundice, Bruising, Other Neurological: No: Weakness, Numbness, Incoordination, Change in speech, Confusion, Seizures, Other Allergies: no known allergies. Objective vital signs Vital Sign Date Time Temp Pulse Resp B/P (MAP) Pulse Ox O2 Delivery O2 Flow Rate FiO2 01/10/25 16:48 98.1 56 16 128/73 (91) 99 98.1 01/10/25 08:00 Room Air* 0 21 Total Intake and Output 01/09/25 01/09/25 01/10/25 15:00 23:00 07:00 Intake Total 1050 ml 100 ml 300 ml Output Total 300 ml Balance 1050 ml 100 ml 0 ml medications Current Medications Medications Dose Ordered Sig/Lonnie Route Start Time Stop Time Status Last Admin Dose Admin Sodium Chloride 1,000 ml @ 120 mls/hr Q8H20M IV 01/09/25 17:00 01/10/25 10:12 120 MLS/HR Ondansetron HCl 4 mg Q4HP PRN IV 01/09/25 17:00 Docusate Sodium 100 mg BIDPRN PRN PO 01/09/25 17:00 Acetaminophen 650 mg Q6HP PRN PO 01/09/25 17:00 Morphine Sulfate 2 mg Q4HPRN PRN IV 01/09/25 17:00 Nitroglycerin 0.4 mg Q5MINP PRN SL 01/09/25 17:00 Morphine Sulfate 2 mg Q30M PRN IV 01/09/25 17:00 Piperacillin Sod/ Tazobactam Sod 100 ml @ 25 mls/hr Q8H IV 01/10/25 01:00 01/10/25 17:43 25 MLS/HR Tamsulosin HCl 0.4 mg QPM PO 01/09/25 18:00 01/10/25 17:43 0.4 MG Atorvastatin Calcium 40 mg HS PO 01/09/25 22:00 01/09/25 23:07 40 MG Pantoprazole Sodium 40 mg DAILY IV 01/10/25 10:00 01/10/25 10:10 40 MG Triamcinolone Acetonide 1 applic BIDP PRN TOP 01/09/25 17:00 Donepezil HCl 5 mg DAILY PO 01/10/25 10:00 01/10/25 10:10 5 MG Diagnostic Test (Pha) 1 strip ACHS 01/09/25 17:00 01/10/25 17:52 1 STRIP Insulin Human Regular ACHS SC 01/09/25 17:00 01/10/25 17:52 2 UNITS Dextrose 50 ml UD PRN IV 01/09/25 17:00 Ergocalciferol 50,000 unit Q7D PO 01/10/25 09:15 01/10/25 14:45 50,000 UNIT Examination General Appearance: Alert, Oriented X3, Cooperative, No acute distress. HEENT: Atraumatic, PERRLA, EOMI, Mucous membr. moist/pink Respiratory: Clear to auscultation, Normal air movement.. Cardiovascular: Regular rate, Normal S1, Normal S2, No murmurs, Gallops, Rubs Abdominal: Normal bowel sounds, Soft, No hepatospenomegaly, Other : Indwelled Emerson catheter draining brown urine, suprapubic tenderness. penile area no edema or erythema, no penile discharge. Scrotal area: no trauma, no pain, no changes in color. Rectal exam: No external hemorrhoids, no active bleeding, rectal sphincter tone is normal, no feces on rectal valve. Note: rectal and exam performed in presence of blood bank laboratory professional MARSHALL Albarran. Extremities: No clubbing, No cyanosis, No edema, Normal pulses, No tenderness/swelling, Other (lower leg dilated veins, varicose) Skin: No rashes, No breakdown, No significant lesion Neuro: Normal gait, Normal speech, Strength at 5/5 X4 ext, Normal tone, Sensation intact, Other laboratory and microbiology Laboratory Tests 01/10/25 04:57 Test 01/10/25 04:57 Range/Units Serum Glucose 113 H 74-106 mg/dL Microbiology Date/Time Source Procedure Growth Status 01/09/25 13:58 Blood Blood Culture - Preliminary NO GROWTH AFTER 24 HOURS OF INCUBATION. Resulted 01/09/25 12:15 Voided Urine Urine Culture - Preliminary Resulted Problem List/Assessment/Plan Problem List/Assessment/Plan #Acute complicated UTI likely cystitis due to indwelling catheter #Acute hematuria likely due to chronic BPH #Acute post renal obstruction likely due to hematuria. UA, Urinary cultures. 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 #Chronic senile dementia, no behavioral issues. Donepezil 5mg daily. #Chronic DM2 with hyperglycemia HbA1C 6.9 PUD prophylaxis: protonix 40mg iv daily DVT prophylaxis: SCDs only. Goals of care discussed with the patient > 35 min. Discussed plan of care with Code status: Full code PCP: Dr. Wendy Kdid Plan discussed with: Patient, the patient agrees with the plan. Plan discussed with: Patient My Orders My Orders Orders - MACK WONG Procedure Category Date Status Time Drug Screen LAB 01/10/25 Logged 06:44 Stool Occult Blood LAB 01/10/25 Logged 06:44 Continous Bladder ORDERS 01/10/25 Transmitted Irrigation 13:[address] Emerson SALUD 01/10/25 In Process 13:11 Date of Service: Jan 10, 2025 Billing Provider: KERVIN MARKS MD Common Visit Codes: [id number] INP/OBS CARE(HIGH) MACK WONG Jan 10, 2025 19:24
[2025-01-11 01:00] VITALS: BP 124/68; PULSE 53; RESP 18; TEMP 97.5; O2SAT 98
[2025-01-11 04:07] LABS: Chlamydia Trachomatis, NAA Negative (Negative); Neisseria gonorrhoeae, NAA Negative (Negative)
[2025-01-11 05:00] VITALS: BP 125/76; PULSE 58; RESP 18; TEMP 97.9; O2SAT 98
[2025-01-11 08:30] VITALS: PULSE 62; RESP 15; O2SAT 96
[2025-01-11 08:50] VITALS: BP 145/86; PULSE 62; RESP 15; TEMP 97.5; O2SAT 96
[2025-01-11 10:07] LABS: Prostate Specific Antigen 5.8 ng/mL (0.0-4.0)
[2025-01-11] MEDS ORDERED: TAMS0.4C39 PO (10:41)
[2025-01-11] MEDS ORDERED: CIPR500T4 PO (10:41)
[2025-01-11] MEDS ORDERED: ERGO1CAP23 PO (10:41)
--- NOTE | 2025-01-11 17:54 | DVHDSRES ---
Discharge Summary Date of Admission Resident Creating Document: MACK WONG RESIDENT Jan 09, 2025 at 16:48 Date of Discharge: Jan 11, 2025 Admitting Diagnosis #Acute complicated UTI likely cystitis due to indwelling catheter #Acute hematuria likely due to chronic BPH #Acute post renal obstruction likely due to hematuria. Wounds: No wounds present on admission. Labs/Diagnostic Data: Laboratory Results Test 01/11/25 06:07 01/10/25 09:34 01/10/25 04:57 01/09/25 18:27 POC Glucose 127 mg/dl (70-106) Free Prostate Specific Antigen 1.59 ng/mL (N/A) Percent Free Prostate Specific Ag 27.4 % (.) Prostate Specific Antigen Total 5.8 ng/mL (0.0-4.0) White Blood Count 5.8 10^3/uL (4.4-10.8) Red Blood Count 3.90 10^6/uL (4.5-5.90) Hemoglobin 12.1 g/dL (13.5-17.5) Hematocrit 36.3 % (41.0-53.0) Mean Corpuscular Volume 93.1 fL (80.0-100.0) Mean Corpuscular Hemoglobin 31.1 pg (28.0-32.0) Mean Corpuscular Hemoglobin Concent 33.4 g/dL (32.0-36.0) Red Cell Distribution Width 12.8 % (11.8-14.3) Platelet Count 181 10^3/uL (140-450) Mean Platelet Volume 8.5 fL (6.9-10.8) Neutrophils (%) (Auto) 51.8 % (37.0-80.0) Lymphocytes (%) (Auto) 37.0 % (10.0-50.0) Monocytes (%) (Auto) 6.6 % (0.0-12.0) Eosinophils (%) (Auto) 3.9 % (0.0-7.0) Basophils (%) (Auto) 0.7 % (0.0-2.0) Neutrophils # (Auto) 3.0 10 ^3/uL (1.6-8.6) Lymphocytes # (Auto) 2.1 10 ^3/uL (0.4-5.4) Monocytes # (Auto) 0.4 10 ^3/uL (0-1.3) Eosinophils # (Auto) 0.2 10 ^3/uL (0-0.8) Basophils # (Auto) 0 10 ^3/uL (0-0.2) Nucleated Red Blood Cells 0.3 % Sodium Level 142 mmol/L (136-145) Potassium Level 4.3 mmol/L (3.5-5.1) Chloride Level 105 mmol/L (98-107) Carbon Dioxide Level 27 mmol/L (20-31) Anion Gap 10 (5-15) Blood Urea Nitrogen 11 mg/dL (9-23) Creatinine 0.93 mg/dL (0.700-1.30) Glomerular Filtration Rate Calc 86 mL/min (>90) BUN/Creatinine Ratio 11.8 (10.0-20.0) Serum Glucose 113 mg/dL (74-106) Calcium Level 8.7 mg/dL (8.7-10.4) Iron Level 61 ug/dL (65-175) Total Iron Binding Capacity 262 ug/dL (250-425) Percent Iron Saturation 23.3 % (20-55) Total Bilirubin 0.7 mg/dL (0.2-1.0) Aspartate Amino Transferase (AST) 19 U/L (13-40) Alanine Aminotransferase (ALT) 23 U/L (7-40) Alkaline Phosphatase 47 U/L (46-116) Total Protein 6.7 g/dL (5.7-8.2) Albumin 3.9 g/dL (3.2-4.8) Triglycerides Level 97 mg/dL (< 150) Cholesterol Level 108 mg/dL (< 200) LDL Cholesterol 67 mg/dL (< 100) HDL Cholesterol 28 mg/dL (40-59) Vitamin B12 Level 680 pg/mL (211-911) Vitamin D 25-Hydroxy 29.4 ng/mL (30.0-100) Lactic Acid Level 1.3 mmol/L (0.4-2.0) Test 01/09/25 12:39 01/09/25 12:38 01/09/25 12:15 Hemoglobin A1c 6.9 % A1C (<5.7) Direct Bilirubin 0.3 mg/dL (<0.3) Urine Color Dark-brown (Yellow) Urine Clarity Ex.turbid (Clear) Urine pH 5.5 (5.0-9.0) Urine Specific Galva 1.027 (1.001-1.035) Urine Protein 1+ (Negative) Urine Ketones Negative (Negative) Urine Blood 3+ /uL (Negative) Urine Nitrite Negative (Negative) Urine Bilirubin Negative (Negative) Urine Urobilinogen Normal mg/dL (Negative) Urine Leukocyte Esterase 1+ /uL (Negative) Urine RBC 2976 /hpf (0 - 3) Urine Microscopic WBC 377 /HPF (0-3) Urine Squamous Epithelial Cells None seen /hpf (<5) Urine Bacteria None seen /hpf (None Seen) Urine Mucus Few (None Seen) Urine Yeast (Budding) Many /hpf (None Seen) Urine Glucose Normal mg/dL (Normal) Chlamydia trachomatis (HOMERO) Negative (Negative) Neisseria gonorrhoeae (HOMERO) Negative (Negative) Other Laboratory Tests 01/10/25 04:57 Brief Hx & Hospital Course: Bridger Roy is a 74-year-old male, with a past medical history of BPH, hyperlipidemia, hypertension, dyslipidemia, dementia, and DM2. The patient presented to the [facility]ED with history of 4 days of noticing brown-red urine coming from the Joy catheter, associated chills, malaise, dysuria, and penile pain 5/10, continues, burning like, no irradiates, with no aggravating or alleviating symptoms. The patient denies fever, chills, pelvic pain or other symptoms. On further questioning, the patient report that visit [facility] ED on 12/15/24 due to urinary retention, there a Joy catheter was placed, with instructions to return if unable to follow up with urology. He was unable to see his PCP for two months despite multiple attempts to contact them. In the ED the vital signs were stable (BP 128/72, HR 68, RR 16, SpO? 96%, Temp 98.0). Past Medical Hx: BPH, hemorrhoids, hyperlipidemia, hypertension, dyslipidemia, dementia, and type II diabetes. Surgical History: Denies all surgeries, on Joy's catheter, for urinary retention needs urology follow up. Family History: Reviewed, noncontributory to illness Social History: Denies smoking, ETOH, and drug use. Lives with family. Hospital course: during his hospital stay at [facility], the patient was evaluated and assessed as follow: On 01/10/25, the patient was evaluated and examined at bedside, vital signs, labs, chart were reviewed. The patient reports dysuria and pelvic pain. the hematuria stopped in the second day of admission.The patient continues IV antibiotic Zocyn. Urology was onboard, they recommended a cystoscopy and a fine needle prostate biopsy. The patient continued with tamsulosin and IV antibiotics. Urine cultures preliminary showed: young colonies, we will wait for the final report. On 01/11/25, the patient was examined and evaluated at bedside. Vs, labs and chart were reviewed. There has not been hematuria in the last 24hrs. The patient reports feeling well. no new complaint. Due to significant improvement, patient will be discharged home. The patient will follow with Dr. Fletcher (urology) on December at 10:00 am. Patient will follow-up in discharge clinic in 1 week. Patient will follow up with PCP Dr. Albarran 1 week. ROS: Constitutional: Yes: Chills, Malaise; No: Fever, Sweats, Weakness, Other Eyes: No: Pain, Vision change, Conjunctivae inflammation, Eyelid inflammation, Other, Redness ENT: No: Ear pain, Ear discharge, Nose pain, Nose discharge, Nose congestion, Mouth pain, Mouth swelling, Throat pain, Throat swelling, Other Respiratory: No: Cough, Dry, Shortness of breath, SOB with excertion, Wheezing, Hemoptysis, Pleuritic Pain, Sputum, Wheezing, Other Cardiovascular: No: Chest Pain, Palpitations, Orthopnea, Paroxysmal Noc. Dyspnea, Edema, Lt Headedness, Other Gastrointestinal: No: Nausea, Vomiting, Abdominal Pain, Diarrhea, Constipation, Melena, Hematochezia, Other Genitourinary: Dysuria, No Incontinence; Hematuria, Retention; No Other Musculoskeletal: No: other, neck pain, shoulder pain, arm pain, back pain, hand pain, leg pain, foot pain Skin: No: Rash, Lesions, Jaundice, Bruising, Other Neurological: No: Weakness, Numbness, Incoordination, Change in speech, Confusion, Seizures, Other Allergies: no known allergies. Examination General Appearance: Alert, Oriented X3, Cooperative, No acute distress. HEENT: Atraumatic, PERRLA, EOMI, Mucous membr. moist/pink Respiratory: Clear to auscultation, Normal air movement.. Cardiovascular: Regular rate, Normal S1, Normal S2, No murmurs, Gallops, Rubs Abdominal: Normal bowel sounds, Soft, No hepatospenomegaly, Other Extremities: No clubbing, No cyanosis, No edema, Normal pulses, No tenderness/swelling, Other (lower leg dilated veins, varicose) Skin: No rashes, No breakdown, No significant lesion Neuro: Normal gait, Normal speech, Strength at 5/5 X4 ext, Normal tone, Sensation intact, Other laboratory and microbiology. Consults/Reason for consult Urology: Hematuria, urinary obstruction Operations or Procedures PROCEDURE(s): TESUS - TESTICULAR ULTRASOUND REASON: R/O TORSION / COLLECTION ORDER NUMBER(s): [id number], ACCESSION NUMBER(s): [id number] ULTRASOUND OF SCROTUM AND CONTENTS. INDICATION: R/O TORSION / COLLECTION COMPARISON: None TECHNIQUE: Multiple real-time grayscale sonographic and color and duplex Doppler images of the scrotum and its contents were obtained. FINDINGS: RIGHT TESTICLE: Measures 3.62 X 2.53 X 3.50 cm. VOLUME OF THE RIGHT TESTICLE IS 16.76 ML. Right hydrocele is visible. LEFT TESTICLE: Measures 4.2 X 2.63 X 2.90 cm. LEFT TESTICULAR VOLUME IS 16.81 ML. Left scrotal hydrocele Small anechoic mass on the left measures 0.22 x 0.33 x 0.29 consistent with a cyst. Both testicles demonstrate homogeneous echotexture without evidence of focal lesions. The right epididymal head measures 1.3 cm. The left epididymal head measures 1.75 cm. Sec small anechoic mass in the epididymis measures 1.04 x 0.69 x 0.35 cm and is consistent with an epididymal cyst. Subsequent color and duplex Doppler interrogation of the testes demonstrated symmetric normal vascular flow to both testicles. No focal areas of hyperemia were seen. IMPRESSION: 1. No evidence of torsion, epididymitis, and/or orchitis. 2. 2 epididymal cysts on the left EDURE(s): KIDUS - KIDNEY REASON: rule out stone or obstruction ORDER NUMBER(s): [id number], ACCESSION NUMBER(s): [id number] CLINICAL HISTORY: rule out stone or obstruction TECHNIQUE: Complete ultrasound exam of the kidneys and bladder was performed. COMPARISON: US KIDNEY on DOS: 05/18/24, US ABDOMEN COMPLETE SONOGRAM on DOS: 02/15/24, KIDNEY on DOS: 08/18/21 FINDINGS: The right kidney has normal echogenicity and measures 10.9 cm. There is a 6.8 cm cyst with no evidence for stone. There is no hydronephrosis. The left kidney has normal echogenicity and measures 11.1 cm. There is a 1.8 cm cyst with no evidence for stone. There is no hydronephrosis. The bladder is decompressed by a Joy catheter and therefore not well evaluated. IMPRESSION: NO SIGNIFICANT SONOGRAPHIC ABNORMALITY OF THE KIDNEYS. ATED BY: GALINA CHAVEZ MD DICTATED DATE/TIME: 01/09/251804 Condition at Discharge: Stable Final Diagnosis/Problems List #Acute complicated UTI likely cystitis due to indwelling catheter #Acute hematuria likely due to chronic BPH #Acute post renal obstruction likely due to hematuria. 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 #Chronic DM2 with hyperglycemia #Chronic left epididymal cysts Discharge Disposition: Home Discharge Instruct/Medications Diet: Cardiac 2g Na,low cholest Activity: No Restrictions, As Tolerated Follow Up/Referral: F/U with Dr. Fletcher/ Urologist F/U with PCP in one week F/U in discharge clinic Medications: Ketflex 500mg po bid for 5 days Tamsulosin 0.4mg po daily Scheduled Ciprofloxacin Hcl (Ciprofloxacin Hcl), 1 TAB PO BID Ergocalciferol (Vitamin D 14212 Unit), 50,000 UNIT PO weekly Tamsulosin Hcl (Tamsulosin Hcl), 1 CAP PO QPM Discharge Statement: "Patient was advised to return to the ER or call 911 if any headaches, dizziness, shortness of breath, chest pain, abdominal pain, bleeding, fevers, or worsening of medical condition. Patient was counseled about treatment plan, medications, possible side effects, patientverbalized understanding. All questions were answered to the best of my ability. This discharge took greater then 30 minutes in planning, reviewing documentation, counseling the patient, and discussing with other team members." Discharge Care Plan Instructions Take Rx medications, Notify MD of any issues, Keep list of meds w/ you, Do not drink ETOH/smoke, Call 911 in an emergency, F/U w/ PCP, Provide comfort measures ASSESSMENT ASSESSMENT Assessment #Acute complicated UTI likely cystitis due to indwelling catheter #Acute hematuria likely due to chronic BPH #Acute post renal obstruction likely due to hematuria. 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 #Chronic DM2 with hyperglycemia #Chronic left epididymal cysts Goals of care discussed with the patient for more than 35 minutes Code Status: Full code PCP: Dr. Albarran, Urology: Dr. Fletcher Case discussed with Dr. Woods The patient agrees with the discharge plan. Date of Service: Jan 11, 2025 Billing Provider: KERVIN WOODS MD Common Visit Codes: [id number] DISCH DAY >30min MACK WONG RESIDENT Jan 11, 2025 17:54
== END 2025-01-11 10:30 | disposition home or self-care (01) | DRG 699 ==
LOC: ER 11:26 → OVERFLOW 16:48 → WEST WING 21:55
PROVIDERS: ADMIT Internal Medicine; ATTEND Internal Medicine
DX: T83.511A Infection and inflammatory reaction due to indwelling urethral catheter, initial encounter (principal); I50.42 Chronic combined systolic (congestive) and diastolic (congestive) heart failure; I11.0 Hypertensive heart disease with heart failure; E11.65 Type 2 diabetes mellitus with hyperglycemia; N30.90 Cystitis, unspecified without hematuria; F03.90 Unspecified dementia, unspecified severity, without behavioral disturbance, psychotic disturbance, mood disturbance, and anxiety; E78.5 Hyperlipidemia, unspecified; K64.8 Other hemorrhoids; K59.09 Other constipation; N40.1 Benign prostatic hyperplasia with lower urinary tract symptoms; R33.8 Other retention of urine; R97.20 Elevated prostate specific antigen [PSA]; N50.3 Cyst of epididymis; Y84.6 Urinary catheterization as the cause of abnormal reaction of the patient, or of later complication, without mention of misadventure at the time of the procedure; Z79.84 Long term (current) use of oral hypoglycemic drugs; Y92.89 Other specified places as the place of occurrence of the external cause
CPT/HCPCS: 36415; 76775; 76870; 80048; 80053; 80061; 80076; 81001; 82306; 82607; 82962; 83036; 83540; 83550; 83605; 84154; 85025; 87040; 87086; 96365; G0378; J1815; J2470; J2543